=== PATIENT | male | born 1965 | race Caucasian/White ===

== ENCOUNTER 2016-08-20 09:33 | Emergency (ER) | payer OTHER ==
[~2016-08-20] VITALS: Ht 167.6 cm; Wt 59.0 kg
[2016-08-20 09:35] VITALS: BP 114/84; PULSE 68; RESP 18; TEMP 97.1; O2SAT 99
--- NOTE | 2016-08-20 09:40 | NUR ---
Patient triaged and placed in waiting room. VSS and patient appears in no acute distress at this time. Accompanied by , awaiting available bed, and MD notified of need for MSE.
--- NOTE | 2016-08-20 10:05 | NUR ---
BROUGHT BACK TO BED #7 AND REPORT GIVEN TO JUDSON
--- NOTE | 2016-08-20 10:10 | NUR ---
Assumed pt care.
--- NOTE | 2016-08-20 10:30 | NUR ---
pt reports being weakness and cough x3 days.Pt h/o bronchitis.
[2016-08-20] MEDS ORDERED: NACL 0.9% 1,000 ML IV ONE (10:45)
[2016-08-20] MEDS ORDERED: IPRATROPIUM BROM 0.5 MG/2.5 ML VIAL.NEB (ATROVENT) INH ONE (10:45)
[2016-08-20] MEDS ORDERED: ALBUTEROL SULFATE 0.083% 2.5 MG/3 ML VIAL.NEB INH PRN (10:45)
[2016-08-20] MEDS ORDERED: LEVOFLOXACIN 500 MG/D5W 100 ML IV ONE (10:45)
--- NOTE | 2016-08-20 10:46 | NUR ---
Pt receiving breathin tx tolerating well.
[2016-08-20 11:21] LABS: BASOPHILS % (AUTO) 0.4 % (0.0-2.0); EOSINOPHILS # (AUTO) 0.1 K/uL (0.0-0.4); HEMATOCRIT 49.4 % (36-54); HEMOGLOBIN 16.2 g/dL (14.0-18.0); LYMPHOCYTES # (AUTO) 1.4 K/uL (1.0-5.5); LYMPHOCYTES % (AUTO) 34.1 % (20.5-51.5); MEAN CORPUSCULAR HEMOGLOBIN 30 pg (27-31); MEAN CORPUSCULAR HGB CONC 33 % (32-36); MEAN CORPUSCULAR VOLUME 92 fL (79.0-98.0); MONOCYTES # (AUTO) 0.3 K/uL (0.0-1.0); MONOCYTES % (AUTO) 7.7 % (1.7-9.3); NEUTROPHILS # (AUTO) 2.4 K/uL (1.8-7.7); NEUTROPHILS % (AUTO) 55.8 % (40.0-70.0); PLATELET COUNT (AUTO) 420 K/uL (130-430); RED BLOOD CELL COUNT(AUTO) 5.37 MIL/uL (4.2-6.2); RED CELL DISTRIBUTION WIDTH 11.5 % (9.0-15.0); WHITE BLOOD COUNT (AUTO) 4.2 K/uL (4.8-10.8)
--- NOTE | 2016-08-20 11:32 | NUR ---
Pt ambulated to restroom w/o assist.Tolerated well.
[2016-08-20 11:40] LABS: CALCIUM 9.7 mg/dL (8.4-11.0); CREATININE 1.08 mg/dL (0.55-1.30); POTASSIUM 3.9 mmol/L (3.5-5.1)
[2016-08-20 11:44] LABS: ALBUMIN 4.4 g/dL (3.4-4.8); TOTAL BILIRUBIN 0.8 mg/dL (0.0-1.0); TOTAL PROTEIN, SERUM 8.8 g/dL (6.4-8.3)
[2016-08-20 11:46] LABS: INR 1.1 (0.80-1.20); PROTHROMBIN TIME 12.1 SECS (9.5-12.5)
--- NOTE | 2016-08-20 12:20 | NUR ---
Pt tolerated IVF and medication well.
[2016-08-20 12:22] LABS: BILIRUBIN,URINE NEGATIVE (NEGATIVE); BLOOD, URINE NEGATIVE (NEGATIVE); CLARITY/URINE CLEAR (CLEAR); COLOR,URINE YELLOW (YELLOW); GLUCOSE,URINE NEGATIVE (NEGATIVE); KETONES,URINE TRACE (NEGATIVE); LEUKOCYTE ESTERASE ,URINE NEGATIVE (NEGATIVE); NITRITE, URINE NEGATIVE (NEGATIVE); PH,URINE 8.5 (5.0-8.0); PROTEIN URINE NEGATIVE (NEGATIVE); UROBILINOGEN,URINE 0.2 (0.2-1.0)
[2016-08-20 12:30] VITALS: BP 122/80; PULSE 70; RESP 18; TEMP 98.6; O2SAT 99
--- NOTE | 2016-08-20 12:30 | NUR ---
Patient given written and verbal discharge instructions and verbalizes understanding. ER MD discussed with patient the results and treatment provided. Given copies of tests performed in ER. Patient in stable condition. ID arm band removed. IV catheter removed intact and dressing applied, no active bleeding. Rx of promethazine w/codeine and augmentin given. Patient educated on pain management and to follow up with PMD. Pain Scale . Opportunity for questions provided and answered.
== END 2016-08-20 12:30 | disposition home or self-care (01) ==
LOC: SED 09:33
DX: J40 Bronchitis, not specified as acute or chronic (principal)
CPT/HCPCS: 36415; 71020; 74000; 80053; 81003; 83605; 83880; 84484; 85025; 85610; 87040; 94640; 94760; 96365; 99285; J1956; J7030